=== PATIENT | male | born 1980 | race African-American/Black ===

== ENCOUNTER 2017-08-01 09:49 | Emergency (ER) | payer MEDICAID ==
[~2017-08-01] VITALS: Ht 180.3 cm; Wt 114.0 kg
[2017-08-01 09:51] VITALS: BP 134/70
[2017-08-01] MEDS ORDERED: DIPH,PERTUSS(ACELL),TET VAC/PF 0.5 ML IM-VACC ONE ×2 (10:28→10:30)
[2017-08-01] MEDS ORDERED: BACITRACIN ZINC OINT 500U/GM, 0.9 GM ONE (10:33)
== END 2017-08-01 11:16 | disposition home or self-care (01) ==
LOC: ED 11:00
DX: S91.155A Open bite of left lesser toe(s) without damage to nail, initial encounter (principal); W54.0XXA Bitten by dog, initial encounter; Y93.89 Activity, other specified; Y99.8 Other external cause status; Y92.89 Other specified places as the place of occurrence of the external cause
CPT/HCPCS: 90471; 90715; 99283

== ENCOUNTER 2018-02-28 18:32 | Emergency (ER) | payer MEDICAID ==
[~2018-02-28] VITALS: Ht 180.3 cm; Wt 89.9 kg
[2018-02-28 18:53] VITALS: BP 132/86
[2018-02-28] MEDS ORDERED: CEFTRIAXONE 250 MG ONE (19:47)
[2018-02-28] MEDS ORDERED: AZITHROMYCIN 250 MG TABLET ONE (19:47)
[2018-02-28] MEDS ORDERED: AZITHROMYCIN 250 MG TABLET PO ONE (20:00)
[2018-02-28] MEDS ORDERED: CEFTRIAXONE 250 MG IM ONE (20:00)
== END 2018-02-28 20:01 | disposition home or self-care (01) ==
LOC: ED 19:45
DX: A56.01 Chlamydial cystitis and urethritis (principal); A54.01 Gonococcal cystitis and urethritis, unspecified
CPT/HCPCS: 96372; 99283; J0696

== ENCOUNTER 2018-09-30 08:11 | Outpatient (CLI) | payer OTHER | END 2018-09-30 23:59 | disposition home or self-care (01) | LOC: CVU 08:11 | PROVIDERS: ATTEND Internal Medicine Cardiovascular Disease | DX: I08.1 Rheumatic disorders of both mitral and tricuspid valves (principal) | CPT/HCPCS: 0399T; 93225; 93226; 93306 ==

== ENCOUNTER 2018-10-16 11:46 | Emergency (ER) | payer OTHER, MEDICAID ==
[~2018-10-16] VITALS: Ht 180.3 cm; Wt 81.8 kg
[2018-10-16 13:15] VITALS: BP 125/94
== END 2018-10-16 14:31 | disposition home or self-care (01) ==
LOC: ED 13:58
DX: R07.89 Other chest pain (principal); R94.31 Abnormal electrocardiogram [ECG] [EKG]
CPT/HCPCS: 36415; 71045; 80053; 84484; 85025; 93005; 99284

== ENCOUNTER 2019-01-06 14:03 | Emergency (ER) | payer MEDICAID, OTHER ==
[~2019-01-06] VITALS: Ht 180.3 cm; Wt 75.7 kg
--- NOTE | 2019-01-06 15:17 | NUR ---
REPORT TO FRED AMANDA
--- NOTE | 2019-01-06 15:25 | NUR ---
REPORT AND CARE FROM JIMBO IBARRA IN [facility]. PT AWAITING RECHECK. VSS. CALL LIGHT IN REACH. NAD NOTED. FALL PRECAUTIONS IN PLACE.
[2019-01-06] MEDS ORDERED: IBUPROFEN 200 MG TABLET ONE (15:55)
[2019-01-06] MEDS ORDERED: NEOSPORIN OINT. PKT 1 PACKET ONE (15:57)
[2019-01-06] MEDS ORDERED: IBUPROFEN 200 MG TABLET PO ONE (16:00)
[2019-01-06 16:10] VITALS: BP 149/89
--- NOTE | 2019-01-06 16:10 | NUR ---
INTO DISCHARGE PT, PT REQUEST TO SPEAK TO PROVIDER, LATONYA LOMAS AT BEDSIDE DISCUSSING PT CONCERNS AND QUESTIONS.
== END 2019-01-06 16:36 ==
LOC: ED 16:07
DX: S60.410A Abrasion of right index finger, initial encounter (principal); S60.412A Abrasion of right middle finger, initial encounter; L89.892 Pressure ulcer of other site, stage 2; X58.XXXA Exposure to other specified factors, initial encounter; Y93.89 Activity, other specified; Y92.009 Unspecified place in unspecified non-institutional (private) residence as the place of occurrence of the external cause; Y99.8 Other external cause status
CPT/HCPCS: 99283